=== PATIENT | male | born 1970 | race Caucasian/White ===

== ENCOUNTER 2017-03-08 10:35 | Emergency (ER) | payer MEDICAID ==
[~2017-03-08] VITALS: Ht 170.2 cm; Wt 63.5 kg
[2017-03-08 10:38] VITALS: BP_SYST 121
[2017-03-08] MEDS ORDERED: DEXAMETHASONE SOD PHOSPHATE 10 MG/ML VIAL IM ONE ×2 (10:45→11:00)
[2017-03-08] MEDS ORDERED: KETOROLAC TROMETHAMINE 60 MG/2 ML VIAL IM ONE (10:45)
[2017-03-08 11:34] VITALS: BP_SYST 119
== END 2017-03-08 11:34 | disposition home or self-care (01) ==
LOC: SED 10:35
DX: M54.40 Lumbago with sciatica, unspecified side (principal)
CPT/HCPCS: 72110; 96372; 99284; J1100; J1885

== ENCOUNTER 2018-05-16 12:05 | Inpatient (IN) | payer MEDICAID ==
[~2018-05-16] VITALS: Ht 170.2 cm; Wt 63.5 kg
[2018-05-16 12:05] VITALS: BP_SYST 116
[2018-05-16] MEDS ORDERED: ASPIRIN 81 MG TAB.CHEW PO ONE (12:45)
[2018-05-16 13:07] LABS: CALCIUM 8.3 mg/dL (8.4-11.0); CREATININE 0.89 mg/dL (0.55-1.30); POTASSIUM 4.4 mmol/L (3.5-5.1)
[2018-05-16 13:14] LABS: ALBUMIN 3.6 g/dL (3.4-4.8); TOTAL BILIRUBIN 0.2 mg/dL (0.0-1.0)
[2018-05-16] MEDS ORDERED: NITROGLYCERIN 0.4 MG TAB.SUBL SL ONE (14:00)
[2018-05-16] MEDS ORDERED: ZOLPIDEM TARTRATE 5 MG TABLET PO PRN ×2 (14:15)
[2018-05-16] MEDS ORDERED: LORazepam 2 MG/ML VIAL IVP PRN (14:15)
[2018-05-16] MEDS ORDERED: MUPIROCIN 2% TOPICAL OINTMENT 22 GM NS PRN (14:15)
[2018-05-16] MEDS ORDERED: HYDROcodone/ACETAMIN 5-325 MG TAB (NORCO/ VICODIN) PO PRN (14:15)
[2018-05-16] MEDS ORDERED: POTASSIUM CHLORIDE 20 MEQ TAB.PRT.SR PO PRN (14:15)
[2018-05-16] MEDS ORDERED: MORPHINE 2 MG/ML INJ. SYRINGE IVP PRN ×2 (14:15)
[2018-05-16] MEDS ORDERED: ONDANSETRON HCL 4 MG/2 ML VIAL IVP PRN (14:15)
[2018-05-16] MEDS ORDERED: ACETAMINOPHEN 325 MG TABLET PO PRN (14:15)
[2018-05-16] MEDS ORDERED: DOCUSATE SODIUM 100 MG CAPSULE PO PRN (14:15)
[2018-05-16] MEDS ORDERED: MAGNESIUM SULFATE 50 ML IV PRN (14:15)
[2018-05-16] MEDS ORDERED: NITROGLYCERIN 0.4 MG TAB.SUBL SL PRN (14:15)
[2018-05-16 14:25] LABS: BASOPHILS # (AUTO) 0.1 K/uL (0.0-0.2); EOSINOPHILS # (AUTO) 0.2 K/uL (0.0-0.4); EOSINOPHILS % (AUTO) 2.9 % (0.0-4.0); HEMATOCRIT 42.6 % (36-54); HEMOGLOBIN 14.1 g/dL (14.0-18.0); LYMPHOCYTES # (AUTO) 1.6 K/uL (1.0-5.5); LYMPHOCYTES % (AUTO) 27.3 % (20.5-51.5); MEAN CORPUSCULAR HEMOGLOBIN 29 pg (27-31); MEAN CORPUSCULAR HGB CONC 33 % (32-36); MEAN CORPUSCULAR VOLUME 87 fL (79.0-98.0); MONOCYTES # (AUTO) 0.6 K/uL (0.0-1.0); MONOCYTES % (AUTO) 9.9 % (1.7-9.3); NEUTROPHILS # (AUTO) 3.5 K/uL (1.8-7.7); NEUTROPHILS % (AUTO) 58.9 % (40.0-70.0); PLATELET COUNT (AUTO) 298 K/uL (130-430); RED BLOOD CELL COUNT(AUTO) 4.87 MIL/uL (4.2-6.2); RED CELL DISTRIBUTION WIDTH 12.8 % (9.0-15.0)
[2018-05-16 14:31] LABS: PROTHROMBIN TIME 9.9 SECS (9.5-12.5)
[2018-05-16 14:44] LABS: FREE T4 (FREE THYROXINE) 0.6 ng/dL (0.6-1.6); THYROID STIMULATING HORMONE 0.7 uIu/mL (0.34-4.82)
[2018-05-16] MEDS ORDERED: METOPROLOL TARTRATE 25 MG TABLET PO ONE (14:45)
[2018-05-16] MEDS ORDERED: ATORVASTATIN 20 MG TABLET PO ONE (14:45)
[2018-05-16] MEDS ORDERED: LISINOPRIL 10 MG TABLET (PRINIVIL) PO ONE (14:45)
[2018-05-16 14:49] VITALS: BP_SYST 102
[2018-05-16] MEDS ORDERED: HEPARIN 25,000 UNITS/D5W 250ML 250 ML IV PRN (15:00)
[2018-05-16] MEDS ORDERED: *LOVENOX 1MG/KG Q12H/PHARMACY XX PRN (15:00)
[2018-05-16] MEDS ORDERED: ENOXAPARIN SODIUM 60 MG/0.6 ML SYRINGE SUBCUT ONE (15:15)
[2018-05-16] MEDS: NACL 0.9% 1,000 ML IV SCH (16:01)
[2018-05-16 20:01] VITALS: BP_SYST 99
[2018-05-16] MEDS: METOPROLOL TARTRATE 25 MG TABLET PO SCH (21:00)
[2018-05-16] MEDS: ENOXAPARIN SODIUM 60 MG/0.6 ML SYRINGE SUBCUT SCH (22:15)
[2018-05-17 00:35] VITALS: BP_SYST 94
[2018-05-17] MEDS: NACL 0.9% 1,000 ML IV SCH (04:57)
[2018-05-17 05:40] LABS: EOSINOPHILS # (AUTO) 0.2 K/uL (0.0-0.4); MEAN CORPUSCULAR HEMOGLOBIN 30 pg (27-31); RED CELL DISTRIBUTION WIDTH 12.4 % (9.0-15.0)
[2018-05-17 06:01] LABS: CALCIUM 8.1 mg/dL (8.4-11.0); CREATININE 0.85 mg/dL (0.55-1.30); PHOSPHORUS 2.9 mg/dL (2.7-4.5); POTASSIUM 4.1 mmol/L (3.5-5.1)
[2018-05-17 06:11] LABS: WHITE BLOOD COUNT (AUTO) 6.4 K/uL (4.8-10.8)
[2018-05-17 06:12] LABS: HEMOGLOBIN 13.4 g/dL (14.0-18.0); RED BLOOD CELL COUNT(AUTO) 4.45 MIL/uL (4.2-6.2)
[2018-05-17 06:13] LABS: BASOPHILS # (AUTO) 0.1 K/uL (0.0-0.2); BASOPHILS % (AUTO) 0.8 % (0.0-2.0); HEMATOCRIT 38.5 % (36-54); LYMPHOCYTES # (AUTO) 2.7 K/uL (1.0-5.5); LYMPHOCYTES % (AUTO) 41.9 % (20.5-51.5); MEAN CORPUSCULAR HGB CONC 35 % (32-36); MEAN CORPUSCULAR VOLUME 87 fL (79.0-98.0); MONOCYTES # (AUTO) 0.7 K/uL (0.0-1.0); MONOCYTES % (AUTO) 10.6 % (1.7-9.3); NEUTROPHILS # (AUTO) 2.7 K/uL (1.8-7.7); NEUTROPHILS % (AUTO) 43.7 % (40.0-70.0); PLATELET COUNT (AUTO) 281 K/uL (130-430)
[2018-05-17 08:10] VITALS: BP_SYST 107
[2018-05-17] MEDS ORDERED: ASPIRIN 81 MG TAB.CHEW PO SCH (09:00)
[2018-05-17] MEDS ORDERED: ATORVASTATIN 20 MG TABLET PO SCH (09:00)
[2018-05-17] MEDS ORDERED: LISINOPRIL 10 MG TABLET (PRINIVIL) PO SCH (09:00)
[2018-05-17] MEDS: METOPROLOL TARTRATE 25 MG TABLET PO SCH (09:12)
[2018-05-17] MEDS: ENOXAPARIN SODIUM 60 MG/0.6 ML SYRINGE SUBCUT SCH (09:15)
[2018-05-17 11:08] LABS: T4 (THYROXINE) 5.9 ug/dL (4.5-12.0)
[2018-05-17 12:29] VITALS: BP_SYST 98
[2018-05-17 12:32] VITALS: BP_SYST 98
== END 2018-05-17 13:30 | disposition short-term general hospital (02) | DRG 198 ==
LOC: SED 12:05 → STU 14:02
PROVIDERS: ADMIT Family Medicine; ATTEND Family Medicine
DX: I24.9 Acute ischemic heart disease, unspecified (principal); E78.5 Hyperlipidemia, unspecified; F17.210 Nicotine dependence, cigarettes, uncomplicated; F41.9 Anxiety disorder, unspecified; M94.0 Chondrocostal junction syndrome [Tietze]; Z82.49 Family history of ischemic heart disease and other diseases of the circulatory system; Z83.3 Family history of diabetes mellitus
CPT/HCPCS: 36415; 71045; 80048; 80053; 80061; 82140-TC; 82150-TC; 83036; 83690-TC; 83735-TC; 83880; 84100-TC; 84436; 84439; 84443-TC; 84479; 84480; 84484; 85025; 85379; 85610-TC; 85730-TC; 93005; 93306; 99285; G0482; J1650; J7030

== ENCOUNTER 2018-05-24 16:13 | Emergency (ER) | payer MEDICAID ==
[~2018-05-24] VITALS: Ht 170.2 cm; Wt 63.5 kg
[2018-05-24 16:15] VITALS: BP_SYST 122
[2018-05-24] MEDS ORDERED: NACL 0.9% 1,000 ML IV ONE (16:19)
[2018-05-24] MEDS ORDERED: CLOPIDOGREL BISULFATE 75 MG TABLET PO ONE (16:30)
[2018-05-24] MEDS ORDERED: NITROGLYCERIN 0.4 MG TAB.SUBL SL ONE (16:30)
[2018-05-24] MEDS ORDERED: ASPIRIN 81 MG TAB.CHEW PO ONE (16:30)
[2018-05-24] MEDS ORDERED: ACETAMINOPHEN 500 MG TABLET PO ONE (16:45)
[2018-05-24 16:50] LABS: BASOPHILS # (AUTO) 0.1 K/uL (0.0-0.2); BASOPHILS % (AUTO) 1.2 % (0.0-2.0); EOSINOPHILS # (AUTO) 0.2 K/uL (0.0-0.4); EOSINOPHILS % (AUTO) 2.3 % (0.0-4.0); HEMATOCRIT 42.7 % (36-54); HEMOGLOBIN 14.1 g/dL (14.0-18.0); LYMPHOCYTES % (AUTO) 28.4 % (20.5-51.5); MEAN CORPUSCULAR HEMOGLOBIN 29 pg (27-31); MEAN CORPUSCULAR HGB CONC 33 % (32-36); MEAN CORPUSCULAR VOLUME 88 fL (79.0-98.0); MONOCYTES # (AUTO) 0.6 K/uL (0.0-1.0); NEUTROPHILS # (AUTO) 4.1 K/uL (1.8-7.7); NEUTROPHILS % (AUTO) 60.1 % (40.0-70.0); PLATELET COUNT (AUTO) 357 K/uL (130-430); RED BLOOD CELL COUNT(AUTO) 4.85 MIL/uL (4.2-6.2); RED CELL DISTRIBUTION WIDTH 12.5 % (9.0-15.0)
[2018-05-24 17:05] LABS: CALCIUM 8.5 mg/dL (8.4-11.0); CREATININE 0.91 mg/dL (0.55-1.30)
[2018-05-24 17:10] LABS: ALBUMIN 3.6 g/dL (3.4-4.8); TOTAL BILIRUBIN 0.2 mg/dL (0.0-1.0)
[2018-05-24] MEDS ORDERED: MORPHINE 4 MG/ML INJ. SYRINGE IVP ONE (17:45)
[2018-05-24 18:40] VITALS: BP_SYST 118
== END 2018-05-24 18:40 | disposition home or self-care (01) ==
LOC: SED 16:13
DX: I20.8 Other forms of angina pectoris (principal); I25.2 Old myocardial infarction; G44.209 Tension-type headache, unspecified, not intractable; Z95.9 Presence of cardiac and vascular implant and graft, unspecified
CPT/HCPCS: 36415; 71045; 80053; 82150; 82550; 83690; 84484; 85025; 85610; 85730; 93005; 96374; 99285; J2270; J7030

== ENCOUNTER 2020-05-08 22:49 | Emergency (ER) | payer MEDICAID ==
[~2020-05-08] VITALS: Ht 170.2 cm; Wt 59.0 kg
[2020-05-08 22:58] VITALS: BP_SYST 209
--- NOTE | 2020-05-08 23:10 | NUR ---
Dr Wills notified of pt status and pt's BP elevated, EKG given to Dr Wills
--- NOTE | 2020-05-08 23:10 | NUR ---
Patient triaged and placed in waiting room. VSS and patient appears in no acute distress at this time. Accompanied by self , awaiting available bed, and MD notified of need for MSE.
--- NOTE | 2020-05-09 00:45 | NUR ---
Patient to ER bed 02 to gown for evaluation. Side rails up. Report given to JANICE Stone
--- NOTE | 2020-05-09 00:50 | NUR ---
Patient brought in complaining of headache x 2 days when 4 teeth fell out of the left side of his mouth with fever. Patient took 1 tramadol with some relief. No other complaints/injuries per patient or as noted. will continue to monitor.
[2020-05-09] MEDS ORDERED: AMOXICILLIN 500 MG CAPSULE PO ONE (01:00)
[2020-05-09] MEDS ORDERED: ONDANSETRON 4 MG ODT TAB PO ONE (01:00)
[2020-05-09] MEDS ORDERED: MORPHINE 2 MG/ML INJ. SYRINGE IM ONE (01:00)
--- NOTE | 2020-05-09 01:00 | NUR ---
ER Dr. guallpa at bedside examining patient.
--- NOTE | 2020-05-09 01:05 | NUR ---
Note gilmerone in EDM - 05/09/20 at 0125 by MITCHELL pt a&o x4 c/o of headache that started 3 days ago after 4 teeth fell out of the top of his left side of his mouth. pt reports nausea of vomiting from pain. pt states he took tramadol and felt relief of his symptoms. He denies any cough or shortness of breath, or sore throat.
[2020-05-09 01:29] VITALS: BP_SYST 161
--- NOTE | 2020-05-09 01:29 | NUR ---
Patient given written and verbal discharge instructions and verbalizes understanding. ER MD discussed with patient the results and treatment provided. Patient in stable condition. ID arm band removed. Rx of motrin, tramadol, amoxicillin given. Patient educated on pain management and to follow up with PMD. Pain Scale 5/10. Opportunity for questions provided and answered. Medication side effect fact sheet provided.
== END 2020-05-09 01:29 | disposition home or self-care (01) ==
LOC: SED 22:49
DX: K04.7 Periapical abscess without sinus (principal); R03.0 Elevated blood-pressure reading, without diagnosis of hypertension
CPT/HCPCS: 93005; 96372; 99283; J2270; Q0162

== ENCOUNTER 2020-08-24 20:50 | Emergency (ER) | payer MEDICAID ==
[~2020-08-24] VITALS: Ht 170.2 cm; Wt 81.6 kg
[2020-08-24 20:55] VITALS: BP_SYST 136
[2020-08-24] MEDS ORDERED: METOCLOPRAMIDE HCL 10 MG/2 ML VIAL IVP ONE (22:30)
[2020-08-24] MEDS ORDERED: NACL 0.9% 1,000 ML IV ONE (22:30)
[2020-08-24] MEDS ORDERED: KETOROLAC TROMETHAMINE 30 MG VIAL IVP ONE (22:30)
[2020-08-24] MEDS ORDERED: DIPHENHYDRAMINE INJ 50 MG/ML VIAL IVP ONE (22:30)
[2020-08-24 23:04] LABS: BASOPHILS # (AUTO) 0.1 K/uL (0.0-0.2); BASOPHILS % (AUTO) 0.7 % (0.0-2.0); EOSINOPHILS # (AUTO) 0.2 K/uL (0.0-0.4); EOSINOPHILS % (AUTO) 1.8 % (0.0-4.0); HEMATOCRIT 39.6 % (36-54); HEMOGLOBIN 13.5 g/dL (14.0-18.0); LYMPHOCYTES % (AUTO) 30.8 % (20.5-51.5); MEAN CORPUSCULAR HEMOGLOBIN 29 pg (27-31); MEAN CORPUSCULAR HGB CONC 34 % (32-36); MEAN CORPUSCULAR VOLUME 86 fL (79.0-98.0); MONOCYTES # (AUTO) 0.7 K/uL (0.0-1.0); MONOCYTES % (AUTO) 7.3 % (1.7-9.3); NEUTROPHILS # (AUTO) 5.8 K/uL (1.8-7.7); NEUTROPHILS % (AUTO) 59.4 % (40.0-70.0); PLATELET COUNT (AUTO) 459 K/uL (130-430); RED CELL DISTRIBUTION WIDTH 13.1 % (9.0-15.0); WHITE BLOOD COUNT (AUTO) 9.7 K/uL (4.8-10.8)
[2020-08-24 23:16] LABS: CALCIUM 8.4 mg/dL (8.4-11.0); POTASSIUM 3.7 mmol/L (3.5-5.1)
[2020-08-24 23:22] LABS: ALBUMIN 3.3 g/dL (3.4-4.8); TOTAL BILIRUBIN 0.1 mg/dL (0.0-1.0)
[2020-08-24] MEDS ORDERED: AMOXICILLIN/CLAVULANATE POTASSIUM 500 MG TABLET PO ONE (23:45)
[2020-08-25 00:46] VITALS: BP_SYST 115
== END 2020-08-25 00:46 | disposition home or self-care (01) ==
LOC: SED 20:50
DX: J32.9 Chronic sinusitis, unspecified (principal); F17.200 Nicotine dependence, unspecified, uncomplicated; Z71.6 Tobacco abuse counseling
CPT/HCPCS: 36415; 70450; 80053; 85025; 96374; 96375; 99284; J1200; J1885; J2765; J7030

== ENCOUNTER 2021-01-16 09:15 | Emergency (ER) | payer MEDICAID ==
[~2021-01-16] VITALS: Ht 170.2 cm; Wt 68.0 kg
[2021-01-16 09:44] VITALS: BP_SYST 125
[2021-01-16] MEDS ORDERED: IBUPROFEN 800 MG TABLET PO ONE (12:00)
[2021-01-16] MEDS ORDERED: IBUP-1969 PO (12:26)
[2021-01-16 12:32] VITALS: BP_SYST 125
== END 2021-01-16 12:32 | disposition home or self-care (01) ==
LOC: SED 09:15
DX: M54.2 Cervicalgia (principal); F17.200 Nicotine dependence, unspecified, uncomplicated; V49.9XXA Car occupant (driver) (passenger) injured in unspecified traffic accident, initial encounter; Y93.89 Activity, other specified; Y92.413 State road as the place of occurrence of the external cause; Y99.8 Other external cause status
CPT/HCPCS: 72125-TC; 76376; 99284